=== PATIENT | female | born 1930 | race Caucasian/White ===

== ENCOUNTER 2021-05-10 19:46 | Inpatient (IN) | payer MEDICARE ==
[~2021-05-10] VITALS: Ht 157.5 cm; Wt 76.6 kg
[2021-05-10 19:48] VITALS: BP 228/106
[2021-05-10] MEDS ORDERED: BACLOFEN5 MG PO (19:54)
[2021-05-10] MEDS ORDERED: NORVASC 2.5 MG2.5 M1 PO (19:54)
[2021-05-10] MEDS ORDERED: LASIX 40 MG TAB40 MG PO (19:54)
[2021-05-10] MEDS ORDERED: DRIZALMA SPRINK20 MG PO (19:55)
[2021-05-10] MEDS ORDERED: OMEPRAZOLE 20 M20 M1 PO (19:55)
[2021-05-10] MEDS ORDERED: KLOR-CON 10 ER10 MEQ PO (19:55)
[2021-05-10] MEDS ORDERED: NEURONTIN100 MG PO (19:55)
[2021-05-10] MEDS ORDERED: ZESTRIL5 MG PO (19:55)
[2021-05-10 20:04] LABS: URINE BILIRUBIN NEGATIVE (Negative); URINE BLOOD 1+ (Negative); URINE CLARITY CLEAR; URINE COLOR YELLOW; URINE GLUCOSE-RANDOM NEGATIVE (Negative); URINE KETONES NEGATIVE (Negative); URINE LEUKOCYTES-REFLEX NEGATIVE (Negative); URINE NITRITE-REFLEX NEGATIVE (Negative); URINE PROTEIN 2+ (Negative); URINE SPECIFIC GRAVITY 1.025 (1.005-1.030); URINE UROBILINOGEN 0.2 E.U./dl (0.2-1.0)
[2021-05-10 20:06] LABS: ABSOLUTE BASOPHILS 0.1 thou/uL (0.0-0.2); ABSOLUTE EOSINOPHILS 0.2 thou/uL (0.0-0.7); ABSOLUTE LYMPHOCYTES 1.5 thou/uL (0.8-5.3); ABSOLUTE MONOCYTES 0.5 thou/uL (0.0-1.2); ABSOLUTE NEUTROPHILS 8.2 thou/uL (1.6-8.1); BASOPHILS 0.6 %; HEMATOCRIT 43.3 % (37.0-47.0); HEMOGLOBIN 14.3 gm/dL (12.0-15.0); LYMPHOCYTES 14.4 %; MCH 32.3 pg (26.0-34.0); MCV 97.8 fL (80.0-100.0); MPV 8.1 fl. (7.2-11.1); NUCLEATED RBCS 0 /100WBC; PLATELET COUNT* 258 thou/uL (150-400); RBC 4.43 mil/uL (4.20-5.00); RDW-CV 13.4 % (10.5-14.5); WBC 10.5 thou/uL (4.0-11.0)
[2021-05-10 20:07] LABS: SQUAMOUS 0-3 Few /LPF (0-3)
[2021-05-10 20:08] LABS: BACTERIA-REFLEX 1-9 Few /HPF (None Seen); CASTS None Seen /LPF (None Seen); CRYSTALS None Seen /LPF (None Seen); MUCUS 0-3 Light strn/LPF (None Seen); URINE RBC 3-10 Few /HPF (0-2)
[2021-05-10 20:09] LABS: URINE WBC-REFLEX 0-5 Rare /HPF (0-5)
[2021-05-10 20:18] LABS: CALCIUM 9.4 mg/dL (8.5-10.1); CREATININE 1.4 mg/dL (0.6-1.3); POTASSIUM 3.3 mmol/L (3.5-5.1)
[2021-05-10 20:28] LABS: MAGNESIUM 2.1 mg/dL (1.8-2.4); TOTAL BILIRUBIN 0.2 mg/dL (<0.1-1.0); TOTAL PROTEIN 7.6 g/dL (6.4-8.2)
[2021-05-11] VITALS (8 sets, daily range): BP systolic 94–180; BP diastolic 66–88
--- NOTE | 2021-05-11 05:12 | NUR ---
NEW ADMIT FROM ER. TRANSPORTED BY CART. PATIENT IS PLEASENT. WAS ABLE TO WALK TO BATHROOM WITH STAND BY ASSIT. UNALBE TO COMPLETE ADMISSION HISTORY DUE TO CONFUSION. WHILE ASSESSING PATIENT, NURSE NOTED THAT PT UNDERSTOOD WHAT NURSE WAS ASKING BUT HAD A DIFFICULT TIME FINDING THE RIGHT WORD, PT NEW WAS SHE WANTED TO SAY BUT COULDN'T SAY IT RIGHT. ASSESSMENT COMPLETE AND DOCUMENT. CONTINUE TO HAVE HYPERTENSION 170S/70S. PT STABLE. REMAINS FREE FROM INJURY. BED ALARM IS TURNED ON.
--- NOTE | 2021-05-11 10:49 | EKG ---
[place] [address] ELECTROCARDIOGRAM REPORT Name: MILDRED WISDOM Room: [address] M.R.#: [id number] Admission: 05/10/21 Attend Phys: Kenneth Laguerre Discharge: Date of : [birth year] Date of Service: 05/10/211958 Report #: [id number] THIS REPORT FOR: //name// [facility] ED Test Date: 2021-05-10 Test Time: 19:59:57 Pat Name: MILDRED WISDOM Department: Room: [facility] Gender: F Staff Technologist: JIGAR : 1930 Requested By: Franchesca James Order Number: [id number] MD: Be Velazquez Measurements Intervals [place] Rate: 105 P: 89 MD: 199 QRS: 54 QRSD: 90 T: -9 QT: 330 QTc: 437 Interpretive Statements Sinus tachycardia Ventricular premature complex Nonspecific T abnormalities, lateral leads Baseline wander in lead(s) II,III,aVL,aVF No previous ECG available for comparison Electronically Signed On 05-11-2021 10:49:26 CDT by Be Velazquez [email or web address] <ELECTRONICALLY SIGNED> By: Be Velazquez MD, [facility] 05/11/21 1049 58 58 Be Velazquez MD, [facility] /EPI
[2021-05-12] VITALS (7 sets, daily range): BP systolic 133–180; BP diastolic 57–83
[2021-05-12 04:16] LABS: CHOLESTEROL 164 mg/dL (<200); HDL CHOLESTEROL 72 mg/dL (>40); LDL CHOLESTEROL 75 mg/dL (<100); TC:HDL 2.3 Ratio (Not establshd); TRIGLYCERIDE 89 mg/dL (<150); VLDL 18 mg/dL (<40)
[2021-05-12 04:23] LABS: SERUM ASSESSMENT CLEAR
[2021-05-12 08:48] LABS: ABSOLUTE BASOPHILS 0.1 thou/uL (0.0-0.2); ABSOLUTE EOSINOPHILS 0.1 thou/uL (0.0-0.7); ABSOLUTE LYMPHOCYTES 1.3 thou/uL (0.8-5.3); ABSOLUTE MONOCYTES 0.5 thou/uL (0.0-1.2); ABSOLUTE NEUTROPHILS 6.2 thou/uL (1.6-8.1); BASOPHILS 0.6 %; EOSINOPHILS 1.6 %; HEMATOCRIT 43.7 % (37.0-47.0); HEMOGLOBIN 14.6 gm/dL (12.0-15.0); LYMPHOCYTES 16.3 %; MCH 32.5 pg (26.0-34.0); MCHC 33.4 g/dL (28.0-37.0); MCV 97.3 fL (80.0-100.0); MONOCYTES 5.7 %; MPV 7.7 fl. (7.2-11.1); NUCLEATED RBCS 0 /100WBC; PLATELET COUNT* 275 thou/uL (150-400); POLYS 75.8 %; RBC 4.48 mil/uL (4.20-5.00); RDW-CV 13.4 % (10.5-14.5); WBC 8.2 thou/uL (4.0-11.0)
[2021-05-12 09:04] LABS: APTT 25.7 Seconds (25.0-31.3); PROTIME 10.4 Seconds (9.20-11.50)
[2021-05-12 09:13] LABS: ALBUMIN 3.8 g/dL (3.4-5.0); CALCIUM 9.6 mg/dL (8.5-10.1); MAGNESIUM 1.9 mg/dL (1.8-2.4); POTASSIUM 3.6 mmol/L (3.5-5.1); TOTAL BILIRUBIN 0.4 mg/dL (<0.1-1.0); TOTAL PROTEIN 7.5 g/dL (6.4-8.2)
--- NOTE | 2021-05-12 11:28 | 2DMMODE ---
[place] [address] 2 D/M-MODE ECHOCARDIOGRAM Name: MILDRED WISDOM Room: [address] IN Kristan#: [id number] Admission: 05/12/21 Attend Phys: Kenneth Laguerre Discharge: Date of : [birth year] Date of Service: 05/12/21 1127 Report #: [id number] THIS REPORT FOR: cc: Yina Shahid MD, Pamela MD Blick, David R. MD [facility] ~ APPROVED REPORT Study performed: 05/12/2021 09:37:34 EXAM: Comprehensive 2D, Doppler, and color-flow Echocardiogram Patient Location: In-Patient Room #: [facility] Status: routine BSA: 1.78 HR: 125 bpm BP: 171/75 mmHg Rhythm: NSR Other Information Study Quality: Fair Indications CVA/TIA Echo Enhancing Agent Indication: Rule out Shunt Agent(s) / Amount(s) Used: Agitated Saline 10 cc 2D Dimensions IVSd: 13.23 (7-11mm) LVOT Diam: 19.66 (18-24mm) LVDd: 38.48 mm PWd: 10.43 (7-11mm) Ascending Ao: 30.79 (22-36mm) LVDs: 18.54 (25-40mm) Aortic Root: 29.95 mm Volumes Left Atrial Volume (Systole) LA ESV Index: 38.80 mL/m2 Aortic Valve AoV Peak Young.: 1.45 m/s AO Peak Gr.: 8.43 mmHg LVOT Max P.68 mmHg AO Mean Gr.: 4.96 mmHg LVOT Mean P.47 [place] [address] 2 D/M-MODE ECHOCARDIOGRAM Name: MILDRED WISDOM Sean Room: [address] IN [facility]#: [id number] Admission: 05/12/21 Attend Phys: Kenneth Laguerre Discharge: Date of : [birth year] Date of Service: 05/12/21 1127 Report #: [id number] LVOT Max V: 1.08 m/s AO V2 VTI: 24.07 cm LVOT Mean V: 0.73 m/s ADOLFO (VTI): 2.03 cm2 LVOT V1 VTI: 16.07 cm Mitral Valve E/A Ratio: 0.72 MV Decel. Time: 223.77 ms MV E Max Young.: 0.80 m/s MV PHT: 64.89 ms MVA (PHT): 3.39 cm2 Pulmonary Valve PV Peak Young.: 1.31 m/s PV Peak Gr.: 6.87 mmHg Left Ventricle The left ventricle is normal size. There is normal LV segmental wall motion. Mild septal hypertrophy is present. Left ventricular systolic function is normal. The left ventricular ejection fraction is within the normal range. LVEF is >70%. Grade I - abnormal relaxation pattern. Right Ventricle The right ventricle is normal size. The right ventricular systolic function is normal. Atria Left atrium is mildly dilated. The interatrial septum is intact with no evidence for an atrial septal defect. The right atrium size is normal. Aortic Valve The aortic valve is normal in structure. No aortic regurgitation is present. There is no aortic valvular stenosis. Mitral Valve The mitral valve is normal in structure. There is no mitral valve regurgitation noted. No evidence of mitral valve stenosis. Tricuspid Valve The tricuspid valve is normal in structure. Unable to assess PA pressure. Trace tricuspid regurgitation. Pulmonic Valve Pulmonic valve is not well visualized. There is no pulmonic [place] [address] 2 D/M-MODE ECHOCARDIOGRAM Name: MILDRED WISDOM Sean Room: [address] IN [facility]#: [id number] Admission: 05/12/21 Attend Phys: Kenneth Laguerre Discharge: Date of : [birth year] Date of Service: 05/12/21 1127 Report #: [id number] Great Vessels The aortic root is normal in size. IVC is normal in size and collapses >50% with inspiration. Pericardium There is no pericardial effusion. <Conclusion> LVEF is >70%. Left atrium is mildly dilated. The interatrial septum is intact with no evidence for an atrial septal defect. <ELECTRONICALLY SIGNED> By: Be Velazquez MD, [facility] 05/12/21 1127 26 112 Be Velazquez MD, FACC /INF
--- NOTE | 2021-05-12 13:33 | NUR ---
Pt is A&O, per dtr, Pt does have dementia. Dtr in room at bedside. Pt resides at home with dtr. Independent. Pt has a cane and walker that she can use for community distances. No home o2. No hx of HH or SNF. Goal is home at dc, dtr wants HH and is ok with [facility]. DC orders, H&P and facesheet need to be faxed to [phone]. Neuro following. Therapies to see. Anticipate dc either later today or tomorrow.
--- NOTE | 2021-05-12 18:07 | NUR ---
Assumed care at 0700. Pt is alert and oriented to self only. Pt is confused at time. Assessment done and charted. Pt sat up in the chair and ate lunch. Will continue care.
[2021-05-13] VITALS: BP 163/88
[2021-05-13 04:00] VITALS: BP 167/77
[2021-05-13 04:36] LABS: HEMATOCRIT 39.8 % (37.0-47.0); HEMOGLOBIN 13.1 gm/dL (12.0-15.0); MCHC 32.9 g/dL (28.0-37.0); MCV 97.2 fL (80.0-100.0); RBC 4.09 mil/uL (4.20-5.00); RDW-CV 13.5 % (10.5-14.5)
[2021-05-13 04:52] LABS: CALCIUM 9.1 mg/dL (8.5-10.1); CREATININE 1.2 mg/dL (0.6-1.3); POTASSIUM 3.3 mmol/L (3.5-5.1)
--- NOTE | 2021-05-13 05:50 | NUR ---
PT CONFUSED AND FORGETFUL. ON RA. NO C/O PAIN. UP WITH SBA TO BR. BED ALARM ON FOR SAFETY. WILL CONTINUE TO MONITOR.
[2021-05-13 08:00] VITALS: BP 156/62
[2021-05-13 12:27] VITALS: BP 143/73
--- NOTE | 2021-05-13 12:57 | NUR ---
AFTER CHART REVIEW AND DISCUSSION WITH PT, DAUGHTER, AND RN, IT WAS DETERMINED THERE WERE NO CURRENT SWALLOWING CONCERNS THAT WARRANTED FURTHER EVALUATION.
[2021-05-13 17:10] VITALS: BP 148/79
--- NOTE | 2021-05-13 19:37 | NUR ---
Assumed care at 0700. Pt is alert and oriented to self and place. Pt has moments of confusion. Bed alarm on. Pt had uneventful day. Will continue plan of care.
[2021-05-13 20:00] VITALS: BP 128/62
[2021-05-14] VITALS: BP 105/54
[2021-05-14 04:00] VITALS: BP 150/86
[2021-05-14 04:43] LABS: HEMATOCRIT 39.5 % (37.0-47.0); HEMOGLOBIN 13.1 gm/dL (12.0-15.0); MCH 32.1 pg (26.0-34.0); MCHC 33.1 g/dL (28.0-37.0); MCV 96.9 fL (80.0-100.0); MPV 7.8 fl. (7.2-11.1); RBC 4.08 mil/uL (4.20-5.00); RDW-CV 13.4 % (10.5-14.5); WBC 7.2 thou/uL (4.0-11.0)
[2021-05-14 04:51] LABS: CALCIUM 9.1 mg/dL (8.5-10.1); POTASSIUM 3.6 mmol/L (3.5-5.1)
--- NOTE | 2021-05-14 07:40 | NUR ---
ASSUMED CARE OF PT AFTER REPORT AT 1930. PT A&OX4. VSS. PHYSICAL ASSESSMENT COMPLETED AND CHARTED. PT ON RA. PT TRACING SR/ST/PVC ON TELE. PT UPSTANDBY TO RESTROOM. PT DENIES ANY PAIN. FALL PRECAUTIONS IN PLACE. CALL LIGHT WITHIN REACH.
[2021-05-14 07:55] VITALS: BP 154/74
--- NOTE | 2021-05-14 09:19 | NUR ---
ASSUMED CARE OF PT THIS AM AROUND 0715- FIELD SUPPORT SPECIALIST IN PLACE ORDERED, TRACING SR- UPON ASSESSMENT PT NOTED TO [place] RESTING IN BED- PT A&O X2-3 WITH NOTED FORGETFULLNESS- CONT OF B/B- SBA WITH TRANSFERS FOR SAFETY- LCTA- VSS, O2 SAT 96% ON RA- ABD SOFT/ROUND/NON-TENDER, BS X4 QUADS- LAST BM REPORTED 05/13/21- IV NOTED TO RIGHT WRIST INTACT AND SL- GOOD PO INTAKE NOTED THIS AM WITH BREAKFAST- EEG COMPLETED THIS AM ORDERED, PENDING RESULTS- DENIES ANY C/O PAIN- CALL LIGHT AND PERSONAL BELONGINGS WITH IN REACH- BED ALARM IN PLACE AND WORKING FOR SAFETY- HOURLY ROUNDS IN PLACE R/T SAFETY/NEEDS- ALL NEEDS MET AT THIS TIME
[2021-05-14 11:19] VITALS: BP 148/73
[2021-05-14 16:46] VITALS: BP 136/74
[2021-05-14 21:50] VITALS: BP 149/74
[2021-05-15 00:20] VITALS: BP 142/67
[2021-05-15 06:11] VITALS: BP 147/80
[2021-05-15 07:45] VITALS: BP 148/76
[2021-05-15] MEDS ORDERED: LIPITOR40 MG PO (09:43)
[2021-05-15] MEDS ORDERED: BAYER CHEWABLE81 MG PO (09:43)
[2021-05-15] MEDS ORDERED: COREG3.125 MG PO (09:43)
[2021-05-15 10:33] VITALS: BP 171/75
--- NOTE | 2021-05-15 13:56 | NUR ---
Pt discharged to home today, [facility] liaison faxed referral.
[2021-05-15 21:05] LABS: ANA INTERPRETATION Negative (())
--- NOTE | 2021-05-17 08:41 | CON ---
[address] [address] CONSULTATION Name: MILDRED WISDOM Room: [address] IN M.Kristan.#: [id number] Admission: 05/12/21 Attend Phys: Cat Gutierrez Discharge: 05/15/21 Date of : [birth year] Report #: [id number] THIS REPORT FOR: cc: Yina Shahid MD, Pamela MD Khosla,Ever Hooks MD ~ DATE OF CONSULTATION: 05/12/2021 HISTORY OF PRESENT ILLNESS: This is an 89-year-old female patient who is not able to provide any reliable history. First, I talked to her and then I called her daughter. The daughter said this patient was having some memory issues for some time, she moved in with her. But starting with Saturday, she has been difficult to arouse and having word-finding difficulty, that frustrates her. She came to the hospital with hypertensive crisis. She also appeared to be dehydrated as her GFR was low, but both of them have been corrected and she still continued to have word-finding difficulty. REVIEW OF SYSTEMS: A 14-point review of system was carried out. She is noncompliant with the medication. She probably has some underlying dementia, but she was functional and was living with her daughter until this word-finding difficulty. It appeared to be about 48 hours' duration. Lipid profile looks unremarkable. She apparently did not have any stroke before. That was a relevant 14-point review of system. PAST MEDICAL HISTORY: Negative for stroke. FAMILY HISTORY: Negative for early age stroke. SOCIAL HISTORY: She lives with her daughter and I talked to the patient's daughter. PHYSICAL EXAMINATION: NEUROLOGIC: She is alert. She is responsive. She could not tell me what month it is. She tried to say that the speech got garbled. She follows simple commands though. Cranial nerve examination and neuromuscular examination was difficult, but I do not think there is any asymmetry. CARDIAC: Examinations appear noncontributory. RESPIRATORY: No respiratory difficulty. VITAL SIGNS: Blood pressure readings were noticed and they are better. IMPRESSION AND PLAN: I am concerned this patient may have had a stroke when she had this hypertensive emergency. If she has a stroke, she will not be an intervention candidate because the symptom happened on Saturday, but I think we should find out. I am going to get a Speech Therapy evaluation for swallowing and we will ask the nurses to do a bedside swallow. [place] [address] CONSULTATION Name: MILDRED WISDOM Room: [address]#: [id number] Admission: 05/12/21 Attend Phys: Cat Gutierrez Discharge: 05/15/21 Date of : [birth year] Report #: [id number] and further workup will depend upon the outcome of those testing. That was discussed with the patient in detail. I am not sure how much the patient understands; therefore, I discussed that with the patient's daughter in detail. A total of more than 50 minutes of time was spent taking care of this patient today and majority was spent counseling and coordinating. <ELECTRONICALLY SIGNED> By: Ever Willard MD 05/17/21 0841 [id number] [id number] Willard MD /nt
== END 2021-05-15 13:45 | disposition home health service (06) | DRG 304 ==
LOC: M.ERS 19:46 → M.2W 22:51 → M.TBA-ER 22:51 → M.2W 05-11 02:04
PROVIDERS: Emergency Medicine; Internal Medicine; Psychiatry & Neurology Neuromuscular Medicine; ADMIT Internal Medicine; ATTEND Internal Medicine
DX: I16.1 Hypertensive emergency (principal); N17.0 Acute kidney failure with tubular necrosis; I67.4 Hypertensive encephalopathy; I10 Essential (primary) hypertension; Z20.822 Contact with and (suspected) exposure to COVID-19; Z79.899 Other long term (current) drug therapy; F03.90 Unspecified dementia, unspecified severity, without behavioral disturbance, psychotic disturbance, mood disturbance, and anxiety